=== PATIENT | female | born 1985 | race American Indian/Alaskan Native ===

== ENCOUNTER 2019-06-25 09:11 | Emergency (ER) | payer MEDICAID ==
--- NOTE | 2019-06-25 10:05 | Emergency Department Report ---
ED Female HPI - General Chief complaint: Urogenital-Female Stated complaint: UTI Time Seen by Provider: 06/25/19 09:30 Source: patient Mode of arrival: Ambulatory Limitations: No Limitations - History of Present Illness Initial comments: 34-year-old female with no significant past medical history presents to the hospital complaints of symptoms of a UTI 2 months. Patient is experiencing pelvic pain, urinary frequency, and stinging with urination. She was initially diagnosed with a UTI after ER visit however, symptoms continue despite completing antibiotics. She then followed up with her primary care doctor in [place] approximately 2 weeks ago and retested positive for UTI. She was treated with Pyridium and additional antibiotic which she also completed. She still complains of UTI symptoms. No complaints of fever, nausea, vomiting, or flank pain. Patient states she was also tested for gonorrhea and chlamydia which was negative but does have intermittent bacterial vaginosis. She states she has not been sexually active since symptom onset secondary to pelvic pain. - Related Data Previous Rx's Medication Instructions Recorded Last Taken Type Ibuprofen [Motrin] 600 mg PO Q8H PRN #30 tablet 06/25/19 Unknown Rx Allergies Allergy/AdvReac Type Severity Reaction Status Date / Time No Known Allergies Allergy Unverified 06/25/19 09:12 ED Review of Systems ROS: Stated complaint: UTI Other details as noted in HPI Comment: All other systems reviewed and negative ED Past Medical Hx - Past Medical History Previous Medical History?: No - Surgical History Past Surgical History?: Yes Additional Surgical History: left knee surgery - Social History Smoking Status: Never Smoker Substance Use Type: Alcohol - Medications Home Medications: Home Medications Medication Instructions Recorded Confirmed Last Taken Type Ibuprofen [Motrin] 600 mg PO Q8H PRN #30 tablet 06/25/19 Unknown Rx ED Physical Exam - General Limitations: No Limitations - Other Other exam information: Gen.: No acute distress Head: Atraumatic Eyes: Normal appearance ENT: Moist mucous membranes Neck: Normal appearance, no posterior midline tenderness, no meningismus Chest: Clear to auscultation bilaterally Cardiovascular: Regular rate and rhythm Abdomen: Normal appearance, soft, suprapubic tenderness, no rebound or guarding, normal bowel sounds : mild cmt, no adenxa tenderness, pelvic tenderness Back: Normal appearance, nontender, no CVA tenderness Extremity: Full range of motion, normal appearance Neuro: Alert and oriented 3, clear speech, no focal motor or sensory deficit Psychiatric: Appropriate Skin: No rash ED Course Vital Signs 06/25/19 09:18 Temperature 98.1 F Pulse Rate 79 Respiratory 18 Rate Blood Pressure 123/74 O2 Sat by Pulse 100 Oximetry ED Medical Decision Making - Radiology Data Radiology results: report reviewed ULTRASOUND PELVIS INDICATION: pelvic pain. TECHNIQUE: Transabdominal. Duplex Color Doppler used: Yes. COMPARISON: None available FINDINGS: Uterus: Present. Size: 7.0 x 4.8 x 5.8 cm. Endometrial complex: Thickened measuring 21 mm. Mass lesions: None. Additional findings: None. Right Ovary: Size: 3.4 x 2.0 x 1.7 cm Blood flow: Normal. Cyst or mass: None. Left Ovary: Size: 4.1 x 3.1 x 3.6 cm Blood flow: Normal. Cyst or mass: No solid lesions. There is a simple appearing cyst measuring 3.3 x 2.3 x 2.5 cm. Urinary Bladder: No significant abnormality. Free Fluid: None. Additional Findings: None. IMPRESSION: 1. No acute sonographic abnormality of the pelvis. 2. Left ovarian cyst as above is likely benign. No follow-up imaging is indicated at this time. - Medical Decision Making pt ua neg wet prep neg g/c chlamydia pending pt declined offer for treatment for gonorrhea and chlamydia stating that she tested negative recently and has not been sexually active Patient declined pain medication in the ED Ovarian cyst noted on ultrasound without other acute abnormality She will be discharged to follow-up with [facility]ET[facility] ANALYST - Differential Diagnosis PID, UTI and vaginitis Critical Care Time: No Critical care attestation.: If time is entered above; I have spent that time in minutes in the direct care of this critically ill patient, excluding procedure time. ED Disposition Clinical Impression: Pelvic pain, Ovarian cyst Disposition: TO HOME OR SELFCARE Is pt being admited?: No Condition: Stable Instructions: Abdominal Pain (ED), Ovarian Cyst (ED) Additional Instructions: Take the medication as prescribed. Follow-up with your doctor or with the doctor/clinic provided. Return if symptoms worsen as indicated by your discharge instructions. Prescriptions: Ibuprofen [Motrin] 600 mg PO Q8H PRN #30 tablet PRN Reason: Pain Referrals: MICHAEL WEINSTEIN MD [Primary Care Provider] - 3-5 Days JESSIE ANTHONY MD [Staff Physician] - 3-5 Days (Primary care doctor) DANIEL ROSEN MD [Staff Physician] - 3-5 Days (CONCRETE ANALYST doctor) [facility] [Provider Group] - 3-5 Days (Primary care clinic) Time of Disposition: 13:21
[2019-06-25 10:48] LABS: Bilirubin,Urine NEG (Negative); Blood,Urine NEG (Negative); Color,Urine Yellow (Yellow); Mucus,Urine FEW /HPF; Protein,Urine <15 mg/dL mg/dL (Negative); Urobilinogen,Urine < 2.0 mg/dL (<2.0)
[2019-06-25 10:56] LABS: HCG Qualitative,Urine Negative (Negative)
--- NOTE | 2019-06-25 13:04 | Ultrasound Report ---
ULTRASOUND PELVIS INDICATION: pelvic pain. TECHNIQUE: Transabdominal. Duplex Color Doppler used: Yes. COMPARISON: None available FINDINGS: Uterus: Present. Size: 7.0 x 4.8 x 5.8 cm. Endometrial complex: Thickened measuring 21 mm. Mass lesions: None. Additional findings: None. Right Ovary: Size: 3.4 x 2.0 x 1.7 cm Blood flow: Normal. Cyst or mass: None. Left Ovary: Size: 4.1 x 3.1 x 3.6 cm Blood flow: Normal. Cyst or mass: No solid lesions. There is a simple appearing cyst measuring 3.3 x 2.3 x 2.5 cm. Urinary Bladder: No significant abnormality. Free Fluid: None. Additional Findings: None. IMPRESSION: 1. No acute sonographic abnormality of the pelvis. 2. Left ovarian cyst as above is likely benign. No follow-up imaging is indicated at this time. Signer Name: Devin Jean Baptiste MD Signed: 06/25/2019 12:59 PM Workstation Name: [id number]
[2019-06-25 13:38] VITALS: BP 147/86
== END 2019-06-25 13:39 | disposition home or self-care (01) ==
LOC: ED 09:11
DX: N83.202 Unspecified ovarian cyst, left side (principal); Z79.899 Other long term (current) drug therapy
CPT/HCPCS: 76856; 81001; 81025; 87210; 87591; 99284

== ENCOUNTER 2019-07-18 09:52 | Emergency (ER) | payer MEDICAID ==
[2019-07-18 10:02] VITALS: BP 139/96
--- NOTE | 2019-07-18 10:26 | Emergency Department Report ---
HPI - General Chief Complaint: Abdominal Pain Time Seen by Provider: 07/18/19 10:09 - [facility] HPI: Room 37 The patient is a 34-year-old female presenting with a chief complaint of headache dizziness and vaginal discharge. The patient states she had a history of hypertension but has been off of medication for the past 2.5 years. The patient states for over a week she has had intermittent headache and dizziness. Patient also states she believes she has a bacterial vaginosis secondary to vaginal discharge and cramping pelvic pain for one week. Patient missed a dysuria and urinary frequency. Patient denies history of fever Location: [See above] Duration: [See above] Quality: [See above] Severity: [See above] Timing: [See above] Context: [See above] Modifying factors: [See above] Associated signs and symptoms: [see above] ED Past Medical Hx - Past Medical History Previous Medical History?: Yes Hx Hypertension: Yes Additional medical history: anemia - Surgical History Past Surgical History?: Yes Additional Surgical History: left knee surgery - Family History Family history: no significant - Social History Smoking Status: Never Smoker Substance Use Type: Alcohol (occasional) - Medications Home Medications: Home Medications Medication Instructions Recorded Confirmed Last Taken Type Ibuprofen [Motrin] 600 mg PO Q8H PRN #30 tablet 06/25/19 Unknown Rx metroNIDAZOLE [Flagyl] 500 mg PO Q12HR #14 tab 07/18/19 Unknown Rx ED Review of Systems ROS: Stated complaint: HPB/BV Other details as noted in HPI Constitutional: denies: fever Eyes: denies: eye pain ENT: denies: throat pain Respiratory: no symptoms reported Cardiovascular: denies: chest pain Endocrine: no symptoms reported Gastrointestinal: abdominal pain Genitourinary: dysuria, frequency, discharge Musculoskeletal: denies: back pain Neurological: headache, other (dizziness) Physical Exam - Physical Exam Vital Signs: Vital Signs 07/18/19 09:59 Temperature 98.6 F Pulse Rate 93 H Respiratory 18 Rate Blood Pressure 139/96 O2 Sat by Pulse 100 Oximetry Physical Exam: GENERAL: The patient is well-developed well-nourished female lying on stretcher not appearing to be in acute distress. [] HEENT: Normocephalic. Atraumatic. Extraocular motions are intact. Patient has moist mucous membranes. NECK: Supple. Trachea midline CHEST/LUNGS: Clear to auscultation. There is no respiratory distress noted. HEART/CARDIOVASCULAR: Regular. There is no tachycardia. There is no gallop rub or murmur. ABDOMEN: Abdomen is soft, nontender. Patient has normal bowel sounds. There is no abdominal distention. SKIN: There is no rash. There is no edema. There is no diaphoresis. NEURO: The patient is awake, alert, and oriented. The patient is cooperative. The patient has no focal neurologic deficits. The patient has normal speech and gait. Cranial nerves II through XII grossly intact, no drift MUSCULOSKELETAL: There is no evidence of acute injury. PELVIC: SMALL AMOUNT OF WHITE DISCHARGE PRESENT IN THE VAULT. ED Course Vital Signs 07/18/19 09:59 Temperature 98.6 F Pulse Rate 93 H Respiratory 18 Rate Blood Pressure 139/96 O2 Sat by Pulse 100 Oximetry - Reevaluation(s) Reevaluation #1: 07/18/19 11:[address] ED Medical Decision Making - Lab Data Laboratory Tests 07/18/19 10:22 Urine Color Yellow Urine Turbidity Clear Urine pH 5.0 Ur Specific [place] 1.020 Urine Protein <15 mg/dl Urine Glucose (UA) Neg Urine Ketones Neg Urine Blood Neg Urine Nitrite Neg Urine Bilirubin Neg Urine Urobilinogen < 2.0 Ur Leukocyte Esterase Neg Urine WBC (Auto) < 1.0 Urine RBC (Auto) < 1.0 U Epithel Cells (Auto) < 1.0 Urine Mucus Few Urine HCG, Qual Negative Jourdan-greater than 20% clue cells, no yeast, no Trichomonas - Differential Diagnosis intracranial mass, headache, urethritis, bacterial vaginosis Critical care attestation.: If time is entered above; I have spent that time in minutes in the direct care of this critically ill patient, excluding procedure time. ED Disposition Clinical Impression: Headache, Bacterial vaginosis Disposition: DC-01 TO HOME OR SELFCARE Is pt being admited?: No Does the pt Need Aspirin: No Condition: Undetermined Instructions: Abdominal Pain (ED), Bacterial Vaginosis (ED) Additional Instructions: Return to the emergency department should you develop worsening symptoms, inability to tolerate food or liquids, high fever or any other concerns Prescriptions: metroNIDAZOLE [Flagyl] 500 mg PO Q12HR #14 tab Referrals: DANIEL ROSEN MD [Staff Physician] - 3-5 Days Forms: STI Treatment and Prevention Time of Disposition: 12:34
[2019-07-18 10:56] LABS: Bilirubin,Urine NEG (Negative); Blood,Urine NEG (Negative); Color,Urine Yellow (Yellow); Mucus,Urine FEW /HPF; Protein,Urine <15 mg/dL mg/dL (Negative); RBC,Urine < 1.0 /HPF (0.0-6.0); Urobilinogen,Urine < 2.0 mg/dL (<2.0)
[2019-07-18 11:06] LABS: HCG Qualitative,Urine Negative (Negative); WBC,Urine < 1.0 /HPF (0.0-6.0)
== END 2019-07-18 13:29 | disposition home or self-care (01) ==
LOC: ED 09:52
DX: N76.0 Acute vaginitis (principal); R51 Headache; I10 Essential (primary) hypertension; D64.9 Anemia, unspecified; Z98.890 Other specified postprocedural states; Z79.899 Other long term (current) drug therapy
CPT/HCPCS: 81001; 81025; 87210; 87591

== ENCOUNTER 2019-11-10 23:43 | Emergency (ER) | payer MEDICAID ==
[2019-11-10 23:58] VITALS: BP 126/85
--- NOTE | 2019-11-11 01:07 | Emergency Department Report ---
ED Female HPI - General Chief complaint: Urogenital-Female Stated complaint: PELVIC PAIN Time Seen by Provider: 11/11/19 00:57 Source: patient Mode of arrival: Ambulatory Limitations: No Limitations - History of Present Illness Initial comments: 34-year-old -[place] female presents to the emergency room complaining of pelvic pain with vaginal discharge x1 week. Patient denies any nausea vomiting. Patient states that she did not follow-up with her primary care provider because she had to work the whole week. Patient is sexually active w ith one partner last intercourse 2 weeks ago. Patient states that the discharge has a slight odor. Patient reports she did take Advil for pain management. MD Complaint: vaginal discharge, pelvic pain - Related Data Previous Rx's Medication Instructions Recorded Last Taken Type Ibuprofen [Motrin] 600 mg PO Q8H PRN #30 tablet 06/25/19 Unknown Rx metroNIDAZOLE [Flagyl] 500 mg PO Q12HR #14 tab 07/18/19 Unknown Rx Allergies Allergy/AdvReac Type Severity Reaction Status Date / Time No Known Allergies Allergy Unverified 06/25/19 09:12 ED Review of Systems ROS: Stated complaint: PELVIC PAIN Other details as noted in HPI Comment: All other systems reviewed and negative ED Past Medical Hx - Past Medical History Previous Medical History?: Yes Hx Hypertension: Yes Additional medical history: anemia - Surgical History Past Surgical History?: Yes Additional Surgical History: left knee surgery - Social History Smoking Status: Never Smoker Substance Use Type: None - Medications Home Medications: Home Medications Medication Instructions Recorded Confirmed Last Taken Type Ibuprofen [Motrin] 600 mg PO Q8H PRN #30 tablet 06/25/19 Unknown Rx metroNIDAZOLE [Flagyl] 500 mg PO Q12HR #14 tab 07/18/19 Unknown Rx ED Physical Exam - General Limitations: No Limitations General appearance: alert, in no apparent distress - Head Head exam: Present: atraumatic, normocephalic - Eye Eye exam: Present: normal appearance - ENT ENT exam: Present: mucous membranes moist - GI/Abdominal GI/Abdominal exam: Present: soft, tenderness (Suprapubic). Absent: distended - External exam: Present: normal external exam Speculum exam: Present: normal speculum exam. Absent: erythema, vaginal discharge, cervical discharge Bi-manual exam: Present: adnexal tenderness - Extremities Exam Extremities exam: Present: normal inspection, full ROM - Back Exam Back exam: Present: normal inspection, full ROM - Neurological Exam Neurological exam: Present: alert, oriented X3, normal gait - Psychiatric Psychiatric exam: Present: normal affect, normal mood - Skin Skin exam: Present: warm, dry, intact, normal color. Absent: rash ED Course Vital Signs 11/10/19 23:49 Temperature 98.5 F Pulse Rate 101 H Respiratory 18 Rate Blood Pressure 126/85 O2 Sat by Pulse 98 Oximetry ED Medical Decision Making - Lab Data Laboratory Tests 11/11/19 00:18 Urine Color Yellow Urine Turbidity Clear Urine pH 5.0 Ur Specific [place] 1.031 H Urine Protein <15 mg/dl Urine Glucose (UA) Neg Urine Ketones Tr Urine Blood Neg Urine Nitrite Neg Urine Bilirubin Neg Urine Urobilinogen 2.0 Ur Leukocyte Esterase Neg Urine WBC (Auto) 1.0 Urine RBC (Auto) 2.0 U Epithel Cells (Auto) < 1.0 Urine Mucus 3+ Urine HCG, Qual Negative - Medical Decision Making 34-year-old -[place] female presents to the emergency room complaining of pelvic pain with vaginal discharge x1 week. Patient denies any nausea vomiting. Patient states that she did not follow-up with her primary care provider because she had to work the whole week. Patient is sexually active with one partner last intercourse 2 weeks ago. Patient states that the discharge has a slight odor. Patient reports she did take Advil for pain management. Critical care attestation.: If time is entered above; I have spent that time in minutes in the direct care of this critically ill patient, excluding procedure time. ED Disposition Clinical Impression: Pelvic pain Disposition: DC-01 TO HOME OR SELFCARE Is pt being admited?: No Does the pt Need Aspirin: No Condition: Stable Instructions: Chronic Pelvic Pain in Women (ED) Additional Instructions: Urinalysis is negative for any infection culture are negative for any infection. You can take ibuprofen or Tylenol for pelvic pain. Follow-up with your [facility] COORDINATOR. Referrals: PRIMARY CARE, [Primary Care Provider] - 3-5 Days
[2019-11-11 02:33] LABS: Bilirubin,Urine NEG (Negative); Blood,Urine NEG (Negative); Color,Urine Yellow (Yellow); Mucus,Urine 3+ /HPF; Protein,Urine <15 mg/dL mg/dL (Negative)
[2019-11-11 02:52] LABS: HCG Qualitative,Urine Negative (Negative)
== END 2019-11-11 02:58 | disposition home or self-care (01) ==
LOC: ED 23:43
DX: R10.2 Pelvic and perineal pain (principal); I10 Essential (primary) hypertension; Z98.890 Other specified postprocedural states; Z79.1 Long term (current) use of non-steroidal anti-inflammatories (NSAID); Z79.899 Other long term (current) drug therapy
CPT/HCPCS: 81001; 81025; 87210; 87591

== ENCOUNTER 2020-04-06 17:55 | Emergency (ER) | payer MEDICAID ==
--- NOTE | 2020-04-06 19:08 | Emergency Department Report ---
ED Headache HPI - General Chief Complaint: High BP Stated Complaint: HEADACHE/CP/HBP/DIZZY - History of Present Illness Allergies/Adverse Reactions: Allergies No Known Allergies Allergy (Unverified 06/25/19 09:12) Home Medications: Ambulatory Orders Ibuprofen [Motrin] 600 mg PO Q8H PRN #30 tablet 06/25/19 metroNIDAZOLE [Flagyl] 500 mg PO Q12HR #14 tab 07/18/19 ED Review of Systems ROS: Stated complaint: HEADACHE/CP/HBP/DIZZY Other details as noted in HPI ED Past Medical Hx - Past Medical History Previous Medical History?: Yes Hx Hypertension: Yes Additional medical history: anemia - Surgical History Past Surgical History?: Yes Additional Surgical History: left knee surgery - Social History Smoking Status: Never Smoker Substance Use Type: Alcohol - Medications Home Medications: Home Medications Medication Instructions Recorded Confirmed Last Taken Type Ibuprofen [Motrin] 600 mg PO Q8H PRN #30 tablet 06/25/19 Unknown Rx metroNIDAZOLE [Flagyl] 500 mg PO Q12HR #14 tab 07/18/19 Unknown Rx ED Physical Exam - General Limitations: No Limitations ED Course Vital Signs 04/06/20 18:08 Temperature 99.0 F Pulse Rate 104 H Respiratory 18 Rate Blood Pressure 122/76 O2 Sat by Pulse 100 Oximetry Critical care attestation.: If time is entered above; I have spent that time in minutes in the direct care of this critically ill patient, excluding procedure time. ED Disposition Condition: Stable
--- NOTE | 2020-04-06 19:12 | Event Note ---
ED Screening Note Date of service: 04/06/20 Time: 19:10 ED Screening Note: Patient 34-year-old -Cyp[place] female with a history of hypertension chronic anemia her on amlodipine. Presents for frontal headache 7/10 for the past 7 days with chest pain and shortness of breath at this time patient rates symptoms at 4/10.. Is constant and relieved by nothing however is exacerbated by activity. Patient denies prolonged sitting or trips. There is no cough that is productive. There has been no syncopal episode. This initial assessment/diagnostic orders/clinical plan/treatment(s) is/are subject to change based on patients health status, clinical progression and re- assessment by fellow clinical providers in the ED. Further treatment and workup at subsequent clinical providers discretion. Patient/guardian urged not to elope from the ED as their condition may be serious if not clinically assessed and managed. Initial orders include: cmp, cbc, cxr, ekg, ua, hcg,
[2020-04-06 19:40] LABS: Basophils % (Auto) 0.5 % (0.0-1.8); Eosinophils # (Auto) 0.1 K/mm3 (0.0-0.4); Eosinophils % (Auto) 1.5 % (0.0-4.3); Hematocrit 38.5 % (30.3-42.9); Hemoglobin 12.7 gm/dl (10.1-14.3); Lymphocytes # (Auto) 1.4 K/mm3 (1.2-5.4); Mean Corpuscular HGB Conc 33 % (30-34); Mean Corpuscular Volume 90 fl (79-97); Monocytes # (Auto) 0.8 K/mm3 (0.0-0.8); Monocytes % (Auto) 11.5 % (0.0-7.3); Platelet Count 181 K/mm3 (140-440); Red Blood Count 4.27 M/mm3 (3.65-5.03); Red Cell Distribution Width 13.9 % (13.2-15.2)
[2020-04-06 20:01] LABS: Alanine Aminotransferase 12 units/L (7-56); Albumin 4.2 g/dL (3.9-5); BUN/Creatinine Ratio 18; Blood Urea Nitrogen 11 mg/dL (7-17); Hemolysis Index 10
[2020-04-06 22:20] VITALS: BP 124/87
[2020-04-06] MEDS ORDERED: diphenhydrAMINE 25 MG CAP PO ONE (22:39)
[2020-04-06] MEDS ORDERED: BUTALB/ACETAMINOPHEN/CAFFEINE TAB PO ONE (22:39)
[2020-04-06] MEDS ORDERED: METOCLOPRAMIDE 10 MG TAB PO ONE (22:39)
--- NOTE | 2020-04-06 22:45 | Emergency Department Report ---
ED General Adult HPI - General Chief complaint: High BP Stated complaint: HEADACHE/CP/HBP/DIZZY Source: patient Mode of arrival: Ambulatory Limitations: No Limitations - History of Present Illness Initial comments: Patient is a 34-year-old -Tajik female with history of hypertension who presents to the ED with complaint of acute onset persistent severe frontal sinus pressure and headache for the last 1 week. Patient also complains of diffuse chest wall pain intermittently for the last 5 days. 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 Patient states the pain is intermittent in the chest wall but that the headache has been persistently getting worse despite taking qsvk-nww-thtzvat medications. Patient denies nausea, vomiting, dizziness, syncope, change in vision, nasal and sinus congestion, sore throat, shortness of breath, abdominal pain, nausea and vomiting or cough, traumatic injury or back pain and diarrhea. MD Complaint: Severe frontal headache with pressure; substernal chest pain -: Sudden, week(s) (1) Location: head, chest Radiation: non-radiation Severity scale (0 -10): 10 Quality: aching, sharp Consistency: constant Improves with: none Worsens with: none Associated Symptoms: denies other symptoms, chest pain. denies: confusion, cough, diaphoresis, fever/chills, headaches, loss of appetite, malaise, nausea/vomiting, seizure, shortness of breath, syncope, weakness Treatments Prior to Arrival: none - Related Data Previous Rx's Medication Instructions Recorded Last Taken Type metroNIDAZOLE [Flagyl] 500 mg PO Q12HR #14 tab 07/18/19 Unknown Rx Amoxicillin [Trimox CAP] 500 mg PO Q8H #30 capsule 04/06/20 Unknown Rx Butalb/Acetamin/Caff 50-325-40 1 - 2 tab PO Q6HR PRN #15 tab 04/06/20 Unknown Rx [Fioricet 50-325-40] Ibuprofen [Motrin 600 MG tab] 600 mg PO Q8H PRN #30 tablet 04/06/20 Unknown Rx tiZANidine [Zanaflex 4mg TAB] 4 mg PO Q12H PRN #15 tablet 04/06/20 Unknown Rx Allergies Allergy/AdvReac Type Severity Reaction Status Date / Time No Known Allergies Allergy Unverified 06/25/19 09:12 ED Review of Systems ROS: Stated complaint: HEADACHE/CP/HBP/DIZZY Other details as noted in HPI Constitutional: denies: chills, fever Eyes: denies: eye pain, eye discharge, vision change ENT: other (Frontal sinus pressure and headache). denies: ear pain, throat pain Respiratory: denies: cough, shortness of breath, wheezing Cardiovascular: chest pain (Diffuse chest wall pain). denies: palpitations Endocrine: no symptoms reported Gastrointestinal: denies: abdominal pain, nausea, diarrhea Genitourinary: denies: urgency, dysuria, discharge Musculoskeletal: denies: back pain, joint swelling, arthralgia Skin: denies: rash, lesions Neurological: headache. denies: weakness, paresthesias Psychiatric: denies: anxiety, depression Hematological/Lymphatic: denies: easy bleeding, easy bruising ED Past Medical Hx - Past Medical History Previous Medical History?: Yes Hx Hypertension: Yes Additional medical history: anemia - Surgical History Past Surgical History?: Yes Additional Surgical History: left knee surgery - Social History Smoking Status: Never Smoker Substance Use Type: Alcohol - Medications Home Medications: Home Medications Medication Instructions Recorded Confirmed Last Taken Type metroNIDAZOLE [Flagyl] 500 mg PO Q12HR #14 tab 07/18/19 Unknown Rx Amoxicillin [Trimox CAP] 500 mg PO Q8H #30 capsule 04/06/20 Unknown Rx Butalb/Acetamin/Caff 50-325-40 1 - 2 tab PO Q6HR PRN #15 tab 04/06/20 Unknown Rx [Fioricet 50-325-40] Ibuprofen [Motrin 600 MG tab] 600 mg PO Q8H PRN #30 tablet 04/06/20 Unknown Rx tiZANidine [Zanaflex 4mg TAB] 4 mg PO Q12H PRN #15 tablet 04/06/20 Unknown Rx ED Physical Exam - General Limitations: No Limitations General appearance: alert, in no apparent distress - Head Head exam: Present: atraumatic, normocephalic, normal inspection - Eye Eye exam: Present: normal appearance, PERRL, EOMI Pupils: Present: normal accommodation - ENT ENT exam: Present: normal orophraynx, mucous membranes moist, TM's normal bilaterally, normal external ear exam, other (Palpable severe frontal and maxillary sinus tenderness) - Neck Neck exam: Present: normal inspection, full ROM - Respiratory Respiratory exam: Present: normal lung sounds bilaterally, chest wall tenderness (Palpable reproducible diffuse chest wall tenderness). Absent: respiratory distress, wheezes, rales, rhonchi, accessory muscle use, decreased breath sounds - Cardiovascular Cardiovascular Exam: Present: regular rate, normal rhythm. Absent: systolic murmur, diastolic murmur, rubs, gallop - GI/Abdominal GI/Abdominal exam: Present: soft, normal bowel sounds. Absent: tenderness, guarding, rebound, hyperactive bowel sounds, hypoactive bowel sounds, organomegaly - Extremities Exam Extremities exam: Present: normal inspection, full ROM, normal capillary refill - Back Exam Back exam: Present: normal inspection, full ROM. Absent: tenderness, CVA tenderness (R), CVA tenderness (L), muscle spasm, paraspinal tenderness - Neurological Exam Neurological exam: Present: alert, oriented X3, CN II-XII intact, normal gait, reflexes normal - Psychiatric Psychiatric exam: Present: normal affect, normal mood - Skin Skin exam: Present: warm, dry, intact, normal color. Absent: rash ED Course Vital Signs 04/06/20 04/06/20 18:08 22:19 Temperature 99.0 F 98.8 F Pulse Rate 104 H 88 Respiratory 18 18 Rate Blood Pressure 122/76 Blood Pressure 124/87 [Left] O2 Sat by Pulse 100 99 Oximetry ED Medical Decision Making - Lab Data Result diagrams: 04/06/20 19:28 04/06/20 19:28 - EKG Data EKG shows normal: sinus rhythm Rate: normal - EKG Data Interpretation: normal EKG 04/07/20 00:31 The EKG shows normal sinus rhythm with ventricular rate of [address] and T wave abnormalities. - Radiology Data Radiology results: report reviewed, image reviewed Findings [address] [address] XRay Report Signed Patient: RAJANI SHIELDS MR#: [id number] : 1985 Acct:[id number] Age/Sex: 34 / F ADM Date: 04/06/20 Loc: ED Attending Dr: Ordering Physician: LISET LIVINGSTON NP Date of Service: 04/06/20 Procedure(s): XR chest routine 2V Accession Number(s): [id number] cc: LISET LIVINGSTON NP Fluoro Time In Minutes: CHEST 2 VIEWS INDICATION / CLINICAL INFORMATION: cp sob. COMPARISON: None available. FINDINGS: SUPPORT DEVICES: None. HEART / MEDIASTINUM: No significant abnormality. LUNGS / PLEURA: No significant pulmonary or pleural abnormality. No pneumothorax. ADDITIONAL FINDINGS: No significant additional findings. IMPRESSION: 1. No acute findings. Signer Name: Bill Medrano MD Signed: 04/06/2020 11:24 PM Workstation Name: [id number] Transcribed By: TL Dictated By: Bill Medrano MD Electronically Authenticated By: Bill Medrano MD Signed Date/Time: 04/06/202323 DD/ 23 TD/TT: - Medical Decision Making This is a 34-year-old -Tajik female with history of hypertension who presents to the ED with complaint of acute onset persistent severe frontal sinus pressure and headache for the last 1 week. Patient also complains of diffuse chest wall pain intermittently for the last 5 days. 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 Patient states the pain is intermittent in the chest wall but that the headache has been persistently getting worse despite taking toqf-pcj-itszipb medications. In the ED, patient is alert and oriented x3 and is not in distress. Lab test results were reviewed and are all nonactionable. Chest x-ray shows no acute cardiopulmonary abnormalities or pneumonitis. Patient was treated for pain in the ED and on reevaluation, patient's pain is well controlled medications. Patient was discharged home on medications and advised to follow-up with her primary care physician in 5 to 7 days for reevaluation or return to the ED immediately if symptoms get worse. - Differential Diagnosis Sinusitis; sinus headache; costochondritis; muscle strain; Pneumonia; CAD Critical care attestation.: If time is entered above; I have spent that time in minutes in the direct care of this critically ill patient, excluding procedure time. ED Disposition Clinical Impression: Severe frontal headaches, Acute costochondritis, Acute nonspecific chest pain with low risk of coronary artery disease, Acute non-recurrent frontal sinusitis Disposition: -01 TO HOME OR SELFCARE Is pt being admited?: No Does the pt Need Aspirin: No Condition: Stable Instructions: Chest Pain (ED), Costochondritis (ED), Acute Bacterial Rhinosinusitis (ED), Acute Headache (ED), Noncardiac Chest Pain (ED) Additional Instructions: All lab test results are unremarkable. Therefore take medication with food, drink plenty of fluids and follow-up with your primary care physician in 5 to 7 days for reevaluation. Return to the ED immediately if symptoms get worse. Prescriptions: Butalb/Acetamin/Caff 50-325-40 [Fioricet 50-325-40] 1 - 2 tab PO Q6HR PRN #15 tab PRN Reason: Headache Ibuprofen [Motrin 600 MG tab] 600 mg PO Q8H PRN #30 tablet PRN Reason: Pain Amoxicillin [Trimox CAP] 500 mg PO Q8H #30 capsule tiZANidine [Zanaflex 4mg TAB] 4 mg PO Q12H PRN #15 tablet PRN Reason: Muscle Spasm Referrals: [facility] [Provider Group] - 3-5 Days Forms: Work/School Release Form(ED) Time of Disposition: 22:44 Print Language: CENTRAL AFRICAN
[2020-04-06 22:54] LABS: Bilirubin,Urine NEG (Negative); Blood,Urine SM (Negative); Color,Urine Yellow (Yellow); Mucus,Urine FEW /HPF; Protein,Urine <15 mg/dL mg/dL (Negative); Urobilinogen,Urine < 2.0 mg/dL (<2.0)
[2020-04-06 22:56] LABS: HCG Qualitative,Urine Negative (Negative)
--- NOTE | 2020-04-06 23:29 | XRay Report ---
CHEST 2 VIEWS INDICATION / CLINICAL INFORMATION: cp sob. COMPARISON: None available. FINDINGS: SUPPORT DEVICES: None. HEART / MEDIASTINUM: No significant abnormality. LUNGS / PLEURA: No significant pulmonary or pleural abnormality. No pneumothorax. ADDITIONAL FINDINGS: No significant additional findings. IMPRESSION: 1. No acute findings. Signer Name: Bill Medrano MD Signed: 04/06/2020 11:24 PM Workstation Name: [id number]
== END 2020-04-07 00:20 | disposition home or self-care (01) ==
LOC: ED 17:55
DX: J01.10 Acute frontal sinusitis, unspecified (principal); M94.0 Chondrocostal junction syndrome [Tietze]; R51 Headache; R07.89 Other chest pain; I10 Essential (primary) hypertension; Z98.890 Other specified postprocedural states; Z79.1 Long term (current) use of non-steroidal anti-inflammatories (NSAID); Z79.2 Long term (current) use of antibiotics; Z79.899 Other long term (current) drug therapy
CPT/HCPCS: 36415; 71046; 80053; 81001; 81025; 84484; 85025; 93005

== ENCOUNTER 2020-08-04 11:33 | Emergency (ER) | payer MEDICAID ==
[2020-08-04 11:52] VITALS: BP 128/78
--- NOTE | 2020-08-04 13:16 | Emergency Department Report ---
Chief Complaint: Skin Rash Stated Complaint: SCABIES Time Seen by Provider: 08/04/20 12:39 - HPI History of Present Illness: 35-year-old -Welsh female presents to the emergency room stating she is having intermittent rashes. Patient feels that she has been exposed to scabies. She states that her daughter spent the night at her friend's house that admits that she had scabies in her home. Patient states that she is having itching. She denies any rashes at this time. Patient states she has been taking Benadryl. Patient denies any change of detergent soap powder or lotion. - Exam Vital Signs: Vital Signs 08/04/20 11:51 Temperature 98.1 F Pulse Rate 93 H Respiratory 16 Rate Blood Pressure 128/78 O2 Sat by Pulse 99 Oximetry MSE screening note: Focused history and physical exam performed. Due to findings the following was ordered: 35-year-old -Welsh female presents to the emergency room stating she is having intermittent rashes. Patient feels that she has been exposed to scabies. She states that her daughter spent the night at her friend's house that admits that she had scabies in her home. Patient states that she is having itching. She denies any rashes at this time. Patient states she has been taking Benadryl. Patient denies any change of detergent soap powder or lotion. Discussed with patient she can take Zyrtec's she can use ovnk-jpu-okvzuuu permethrin/Nix. 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 ED Disposition for MSE Disposition: MED SCREENING EXAM-LEFT Is pt being admited?: No Does the pt Need Aspirin: No Condition: Stable Additional Instructions: You can take wnxb-eaq-ocixvqi Zyrtec 10 mg daily you can use iaua-zyt-xefqxur Nix or Permethrin as a body wash. You can consult with the pharmacist. 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 Referrals: [facility] [Provider Group] - 3-5 Days [facility] [Provider Group] - 3-5 Days
== END 2020-08-04 12:43 | disposition left against medical advice (07) ==
LOC: ED 11:33
DX: R21 Rash and other nonspecific skin eruption (principal); Z53.21 Procedure and treatment not carried out due to patient leaving prior to being seen by health care provider

== ENCOUNTER 2020-10-10 09:13 | Day surgery (SDC) | payer MEDICAID ==
[2020-10-10] MEDS ORDERED: LACTATED RINGERS 1,000 ML ONE (09:27)
[2020-10-10] MEDS ORDERED: LACTATED RINGERS 1,000 ML IV SCH (09:30)
[2020-10-10 10:03] VITALS: BP 129/77
== END 2020-10-10 09:14 | disposition home or self-care (01) ==
LOC: OR 09:13
PROVIDERS: ATTEND Obstetrics & Gynecology
DX: N83.202 Unspecified ovarian cyst, left side (principal); R10.2 Pelvic and perineal pain; I10 Essential (primary) hypertension; D64.9 Anemia, unspecified; Z53.8 Procedure and treatment not carried out for other reasons; Z98.890 Other specified postprocedural states
CPT/HCPCS: 36415; 81025; 84702; 84703; J7120

== ENCOUNTER 2020-12-10 16:03 | Emergency (ER) | payer MEDICAID ==
--- NOTE | 2020-12-10 17:54 | Ultrasound Report ---
ULTRASOUND OBSTETRIC INDICATION / CLINICAL INFORMATION: , cramping, no heart tones at dr office. Clinical Gestational Age (GA): 14.1 weeks.days TECHNIQUE: Transabdominal. COMPARISON: None available. FINDINGS: GESTATIONAL SAC: Well-defined oval shape and intrauterine in location. YOLK SAC: No significant abnormality. EMBRYO/FETUS: - [place]-Rump Length = 4.0 cm = 10.6 weeks.days - Heart Rate, beats per minute (if present) = absent ADNEXA: Right ovary is not well-visualized today's examination. Left ovary demonstrates no significan t abnormality. FREE FLUID: None. ADDITIONAL FINDINGS: Small amount of subchorionic fluid suggesting a small subchorionic hemorrhage. T his measures approximately 2.5 x 1 cm. IMPRESSION: 1. Single intrauterine gestation without heart tones concerning for failure. Recommen d clinical correlation and further evaluation as warranted. Consider further follow-up with serial be ta hCG, as warranted. Signer Name: Matt Rose MD Signed: 12/10/2020 5:50 PM Workstation Name: [id number]
[2020-12-10 18:07] LABS: Basophils % (Auto) 0.5 % (0.0-1.8); Eosinophils # (Auto) 0.1 K/mm3 (0.0-0.4); Hematocrit 38.3 % (30.3-42.9); Hemoglobin 12.8 gm/dl (10.1-14.3); Lymphocytes # (Auto) 1.3 K/mm3 (1.2-5.4); Lymphocytes % (Auto) 19.2 % (13.4-35.0); Mean Corpuscular HGB Conc 33 % (30-34); Mean Corpuscular Volume 92 fl (79-97); Monocytes # (Auto) 0.7 K/mm3 (0.0-0.8); Monocytes % (Auto) 9.8 % (0.0-7.3); Platelet Count 156 K/mm3 (140-440); Red Blood Count 4.19 M/mm3 (3.65-5.03)
[2020-12-10 18:22] LABS: Alanine Aminotransferase 11 units/L (7-56); Blood Urea Nitrogen 7 mg/dL (7-17); Calcium 8.7 mg/dL (8.4-10.2); Hemolysis Index 13
[2020-12-10 18:24] LABS: BUN/Creatinine Ratio 18
--- NOTE | 2020-12-10 19:09 | Emergency Department Report ---
ED HPI - General Chief complaint: Vaginal Bleeding Stated complaint: 11 WKS /NO HEART BEAT Time Seen by Provider: 12/10/20 17:10 Source: patient Mode of arrival: Ambulatory Limitations: No Limitations - History of Present Illness Initial comments: Patient is a 35-year-old P2, G1, A0, pt presents for complaint of abdominal cramping x 1 week , seen at obgyn today Dr. Parikh, pt was refered to ed for US as office Us machine was not available today. pt is currently 11 weeks , LMP 3 months ago. pt denies vaginal bleeding, no vaginal discharge no fever no chills, no n/v. abdominal cramps rated at 4/10 intermittent. MD Complaint: abdominal pain - Related Data Home Medications Medication Instructions Recorded Confirmed Last Taken amLODIPine [Norvasc] 10 mg PO DAILY 09/26/20 10/08/20 Unknown Allergies Allergy/AdvReac Type Severity Reaction Status Date / Time No Known Allergies Allergy Verified 10/10/20 09:58 ED Review of Systems ROS: Stated complaint: 11 WKS /NO HEART BEAT Other details as noted in HPI Constitutional: denies: chills, fever Eyes: denies: eye pain, eye discharge, vision change ENT: denies: ear pain, throat pain Respiratory: denies: cough, shortness of breath, wheezing Cardiovascular: denies: chest pain, palpitations Endocrine: no symptoms reported Gastrointestinal: abdominal pain (Injection hCG pill). denies: nausea, vomiting, diarrhea Genitourinary: denies: urgency, dysuria, frequency, hematuria, discharge Musculoskeletal: denies: back pain, joint swelling, arthralgia Skin: denies: rash, lesions Neurological: denies: headache, weakness, paresthesias Psychiatric: denies: anxiety, depression Hematological/Lymphatic: denies: easy bleeding, easy bruising ED Past Medical Hx - Past Medical History Previous Medical History?: Yes Hx Hypertension: Yes Hx Headaches / Migraines: Yes (Migraines) Additional medical history: anemia - Surgical History Past Surgical History?: Yes Additional Surgical History: left knee surgery - Social History Smoking Status: Never Smoker - Medications Home Medications: Home Medications Medication Instructions Recorded Confirmed Last Taken Type amLODIPine [Norvasc] 10 mg PO DAILY 09/26/20 10/08/20 Unknown History ED Physical Exam - General Limitations: No Limitations General appearance: alert, in no apparent distress - Head Head exam: Present: atraumatic, normocephalic - Eye Eye exam: Present: EOMI Pupils: Present: normal accommodation - ENT ENT exam: Present: mucous membranes moist - Neck Neck exam: Present: normal inspection, full ROM. Absent: tenderness - Respiratory Respiratory exam: Present: normal lung sounds bilaterally. Absent: respiratory distress, wheezes, stridor, chest wall tenderness - Cardiovascular Cardiovascular Exam: Present: regular rate, normal rhythm, normal heart sounds. Absent: systolic murmur, diastolic murmur, rubs, gallop - GI/Abdominal GI/Abdominal exam: Present: soft, normal bowel sounds. Absent: distended, tenderness, guarding, rebound, rigid, bruit, hernia - Rectal Rectal exam: Present: deferred - Extremities Exam Extremities exam: Present: normal inspection, full ROM. Absent: tenderness, pedal edema - Back Exam Back exam: Present: normal inspection, full ROM. Absent: tenderness, CVA tenderness (R), CVA tenderness (L) - Neurological Exam Neurological exam: Present: alert, oriented X3, CN II-XII intact, normal gait - Psychiatric Psychiatric exam: Present: normal affect, normal mood - Skin Skin exam: Present: warm, dry, intact, normal color. Absent: rash ED Medical Decision Making - Lab Data Result diagrams: 12/10/20 17:37 12/10/20 17:37 Labs 12/10/20 12/10/20 12/10/20 17:37 17:37 17:37 WBC 6.9 RBC 4.19 Hgb 12.8 Hct 38.3 MCV 92 MCH 31 MCHC 33 RDW 14.0 Plt Count 156 Lymph % (Auto) 19.2 [place] % (Auto) 9.8 H Eos % (Auto) 2.0 Baso % (Auto) 0.5 Lymph # (Auto) 1.3 [place] # (Auto) 0.7 Eos # (Auto) 0.1 Baso # (Auto) 0.0 Seg Neutrophils % 68.5 Seg Neutrophils # 4.7 Sodium 136 L Potassium 4.0 Chloride 102.2 Carbon Dioxide 25 Anion Gap 13 BUN 7 Creatinine 0.4 L Estimated GFR > 60 BUN/Creatinine Ratio 18 Glucose 78 Calcium 8.7 Total Bilirubin 0.20 AST 20 ALT 11 Alkaline Phosphatase 50 Total Protein 7.6 Albumin 4.0 Albumin/Globulin Ratio 1.1 HCG, Quant 2178 H Blood Type 12/10/20 17:37 WBC RBC Hgb Hct MCV MCH MCHC RDW Plt Count Lymph % (Auto) [place] % (Auto) Eos % (Auto) Baso % (Auto) Lymph # (Auto) [place] # (Auto) Eos # (Auto) Baso # (Auto) Seg Neutrophils % Seg Neutrophils # Sodium Potassium Chloride Carbon Dioxide Anion Gap BUN Creatinine Estimated GFR BUN/Creatinine Ratio Glucose Calcium Total Bilirubin AST ALT Alkaline Phosphatase Total Protein Albumin Albumin/Globulin Ratio HCG, Quant Blood Type A POSITIVE - Radiology Data Radiology results: report reviewed, image reviewed ULTRASOUND OBSTETRIC INDICATION / CLINICAL INFORMATION: , cramping, no heart tones at dr office. Clinical Gestational Age (GA): 14.1 weeks.days TECHNIQUE: Transabdominal. COMPARISON: None available. FINDINGS: GESTATIONAL SAC: Well-defined oval shape and intrauterine in location. YOLK SAC: No significant abnormality. EMBRYO/FETUS: - [place]-Rump Length = 4.0 cm = 10.6 weeks.days - Heart Rate, beats per minute (if pr esent) = absent ADNEXA: Right ovary is not well-visualized today's examination. Left ovary demonstrates no significant abnormality. FREE FLUID: None. ADDITIONAL FINDINGS: Small amount of subchorionic fluid suggesting a small subchorionic hemorrhage. This measures approximately 2.5 x 1 cm. IMPRESSION: 1. Single intrauterine gestation without heart tones concerning for failure. Recommend clinical correlation and further evaluation as warranted. Consider further follow-up with serial beta hCG, as warranted. Signer Name: Matt Rose MD Signed: 12/10/2020 5:50 PM Workstation Name: [id number] Transcribed By: Dictated By: MATT ROSE III Electronically Authenticated By: MATT ROSE III Signed Date/Time: 12/10/20 175 DD/ 43 TD/TT: - Medical Decision Making US OB: Single intrauterine gestation without heart tones concerning for failure. Recommend clinical correlation and further evaluation as warranted. Consider further follow-up with serial beta hCG, as warranted. discussed finding with patient , patient will folllw up with OBGYN in am , Dr. Parikh, pt denies vaginal bleeding at this time, denies pain at this time, plan: dc to self in stable condition, follow with Dr. Parikh in am, return to ed if symptoms worsen. pt verbalized agreement and understanding of discharge plan. Critical care attestation.: If time is entered above; I have spent that time in minutes in the direct care of this critically ill patient, excluding procedure time. ED Disposition Clinical Impression: Threatened miscarriage Disposition: DC-01 TO HOME OR SELFCARE Is pt being admited?: No Does the pt Need Aspirin: No Condition: Stable Instructions: Threatened Miscarriage Additional Instructions: follow up with your OBGYN in am, return to ed if symptoms worsen. Referrals: KARLOS PARIKH MD [Staff Physician] - 3-5 Days Forms: Work/School Release Form(ED) Time of Disposition: 19:24
== END 2020-12-10 19:30 | disposition home or self-care (01) ==
LOC: ED 16:03
DX: O20.0 Threatened abortion (principal); I10 Essential (primary) hypertension; G43.909 Migraine, unspecified, not intractable, without status migrainosus; Z3A.11 11 weeks gestation of pregnancy; Z98.890 Other specified postprocedural states; Z79.899 Other long term (current) drug therapy
CPT/HCPCS: 36415; 76801; 80053; 84702; 85025; 86900; 86901

== ENCOUNTER 2020-12-13 17:20 | Emergency (ER) | payer MEDICAID ==
[2020-12-13] MEDS ORDERED: SODIUM CHLORIDE 0.9% 1000 ML 1,000 ML IV ONE ×2 (17:35→19:04)
[2020-12-13 17:57] LABS: Basophils % (Auto) 0.3 % (0.0-1.8); Eosinophils # (Auto) 0.1 K/mm3 (0.0-0.4); Eosinophils % (Auto) 1.6 % (0.0-4.3); Hematocrit 35.4 % (30.3-42.9); Hemoglobin 11.9 gm/dl (10.1-14.3); Lymphocytes # (Auto) 1.3 K/mm3 (1.2-5.4); Lymphocytes % (Auto) 17.2 % (13.4-35.0); Mean Corpuscular HGB Conc 34 % (30-34); Mean Corpuscular Volume 92 fl (79-97); Monocytes % (Auto) 13.2 % (0.0-7.3); Platelet Count 170 K/mm3 (140-440); Red Blood Count 3.84 M/mm3 (3.65-5.03); Red Cell Distribution Width 14.1 % (13.2-15.2)
[2020-12-13 18:09] LABS: INR 1.03 (0.87-1.13)
[2020-12-13 18:17] LABS: Blood Urea Nitrogen 10 mg/dL (7-17); Calcium 7.8 mg/dL (8.4-10.2); Hemolysis Index 9
[2020-12-13 18:19] LABS: BUN/Creatinine Ratio 20
[2020-12-13] MEDS ORDERED: KETOROLAC 30 MG/1 ML INJ IV ONE (18:44)
--- NOTE | 2020-12-13 19:38 | Emergency Department Report ---
<TIN ROSAS - Last Filed: 12/13/20 19:35> ED HPI - General Chief complaint: Vaginal Bleeding Stated complaint: VAGINAL BLEEDING Time Seen by Provider: 12/13/20 17:29 Source: EMS Mode of arrival: Stretcher Limitations: No Limitations - History of Present Illness Initial comments: Patient is a 35-year-old F [place] female who is currently and approximately according to the patient is last menstrual period almost 4 months who is presenting with some heavy vaginal bleeding. Patient was here 3 days ago for some low abdominal pain. Ultrasound was performed which showed probable demise. Quant at that time was a little over 1999. Patient states today she is started to bleed extremely heavily. Some cramping lower abdominal pain. Patient states she is passing large clots. States she feels some mild weakness dizziness. Also feels very cold. - Related Data Home Medications Medication Instructions Recorded Confirmed Last Taken amLODIPine [Norvasc] 10 mg PO DAILY 09/26/20 10/08/20 Unknown Allergies Allergy/AdvReac Type Severity Reaction Status Date / Time No Known Allergies Allergy Verified 10/10/20 09:58 ED Review of Systems Comment: All other systems reviewed and negative ED Past Medical Hx - Past Medical History Hx Hypertension: Yes Hx Headaches / Migraines: Yes (Migraines) Additional medical history: anemia - Surgical History Past Surgical History?: Yes Additional Surgical History: left knee surgery - Social History Smoking Status: Unknown if ever smoked Substance Use Type: None - Medications Home Medications: Home Medications Medication Instructions Recorded Confirmed Last Taken Type amLODIPine [Norvasc] 10 mg PO DAILY 09/26/20 10/08/20 Unknown History ED Physical Exam - General Limitations: No Limitations General appearance: alert, in no apparent distress - Head Head exam: Present: atraumatic, normocephalic - Eye Eye exam: Present: normal appearance - ENT ENT exam: Present: mucous membranes moist - Neck Neck exam: Present: normal inspection - Respiratory Respiratory exam: Present: normal lung sounds bilaterally. Absent: respiratory distress, wheezes, rales - Cardiovascular Cardiovascular Exam: Present: normal rhythm, tachycardia. Absent: systolic murmur, diastolic murmur, rubs, gallop - GI/Abdominal GI/Abdominal exam: Present: soft, tenderness (lower abd), normal bowel sounds. Absent: distended, guarding, rebound - External exam: Present: bleeding, other (Patient with large amount of blood on her clothes on arrival. Pants had to be discarded. Patient with large clots that were in her underwear and in the vaginal vault.) - Extremities Exam Extremities exam: Present: normal inspection - Back Exam Back exam: Present: normal inspection - Neurological Exam Neurological exam: Present: alert, oriented X3 - Psychiatric Psychiatric exam: Present: normal affect, normal mood - Skin Skin exam: Present: warm, dry, intact, normal color. Absent: rash ED Course - Reevaluation(s) Reevaluation #1: 12/13/20 19:37 Patient's blood pressure dropped slightly to 99 systolic. Additional liter of fluid was ordered. Did check the patient after her ultrasound and she continued to have large clots in the vaginal vault and on the belkis beneath her. Appears to be a continuous steady trickle of blood. ED Medical Decision Making - Lab Data Result diagrams: 12/13/20 17:43 12/13/20 17:43 Lab Results 12/13/20 12/13/20 12/13/20 Range/Units 17:43 17:43 17:43 WBC 7.8 (4.5-11.0) K/mm3 RBC 3.84 (3.65-5.03) M/mm3 Hgb 11.9 (10.1-14.3) gm/dl Hct 35.4 (30.3-42.9) % MCV 92 (79-97) fl MCH 31 (28-32) pg MCHC 34 (30-34) % RDW 14.1 (13.2-15.2) % Plt Count 170 (140-440) K/mm3 Lymph % (Auto) 17.2 (13.4-35.0) % [place] % (Auto) 13.2 H (0.0-7.3) % Eos % (Auto) 1.6 (0.0-4.3) % Baso % (Auto) 0.3 (0.0-1.8) % Lymph # (Auto) 1.3 (1.2-5.4) K/mm3 [place] # (Auto) 1.0 H (0.0-0.8) K/mm3 Eos # (Auto) 0.1 (0.0-0.4) K/mm3 Baso # (Auto) 0.0 (0.0-0.1) K/mm3 Seg Neutrophils % 67.7 (40.0-70.0) % Seg Neutrophils # 5.3 (1.8-7.7) K/mm3 PT 13.3 (12.2-14.9) Sec. INR 1.03 (0.87-1.13) APTT 32.0 (24.2-36.6) Sec. Sodium 136 L (137-145) mmol/L Potassium 3.8 (3.6-5.0) mmol/L Chloride 105.0 (98-107) mmol/L Carbon Dioxide 22 (22-30) mmol/L Anion Gap 13 mmol/L BUN 10 (7-17) mg/dL Creatinine 0.5 L (0.6-1.2) mg/dL Estimated GFR > 60 ml/min BUN/Creatinine Ratio 20 % Glucose 100 (65-100) mg/dL Calcium 7.8 L (8.4-10.2) mg/dL HCG, Quant (0-4) mIU/mL Blood Type 12/13/20 12/13/20 Range/Units 17:43 17:43 WBC (4.5-11.0) K/mm3 RBC (3.65-5.03) M/mm3 Hgb (10.1-14.3) gm/dl Hct (30.3-42.9) % MCV (79-97) fl MCH (28-32) pg MCHC (30-34) % RDW (13.2-15.2) % Plt Count (140-440) K/mm3 Lymph % (Auto) (13.4-35.0) % [place] % (Auto) (0.0-7.3) % Eos % (Auto) (0.0-4.3) % Baso % (Auto) (0.0-1.8) % Lymph # (Auto) (1.2-5.4) K/mm3 [place] # (Auto) (0.0-0.8) K/mm3 Eos # (Auto) (0.0-0.4) K/mm3 Baso # (Auto) (0.0-0.1) K/mm3 Seg Neutrophils % (40.0-70.0) % Seg Neutrophils # (1.8-7.7) K/mm3 PT (12.2-14.9) Sec. INR (0.87-1.13) APTT (24.2-36.6) Sec. Sodium (137-145) mmol/L Potassium (3.6-5.0) mmol/L Chloride (98-107) mmol/L Carbon Dioxide (22-30) mmol/L Anion Gap mmol/L BUN (7-17) mg/dL Creatinine (0.6-1.2) mg/dL Estimated GFR ml/min BUN/Creatinine Ratio % Glucose (65-100) mg/dL Calcium (8.4-10.2) mg/dL HCG, Quant 865.4 H (0-4) mIU/mL Blood Type A POSITIVE ED Disposition Clinical Impression: Threatened miscarriage, SAB (spontaneous ), Vaginal bleeding Disposition: TO HOME OR SELFCARE Condition: Stable Additional Instructions: Patient to follow-up with primary care in 2 to 3 days. Patient to follow-up with FUEL STORAGE TECHNICIAN in 2 to 3 days. Nothing per vagina until cleared by FUEL STORAGE TECHNICIAN. Patient to rest. Patient to increase water. Patient to avoid strenuous exercise or heavy lifting until cleared by FUEL STORAGE TECHNICIAN. Patient to take Tylenol or ibuprofen as needed for pain. Patient to continue a vitamin. Patient to return to the ER if condition worsens, changes or new symptoms arise. Referrals: DIMPLE VARGAS NP [Primary Care Provider] - 2-3 Days PROSPER NEVILLE MD [Staff Physician] - 2-3 Days <DENZEL BOO III - Last Filed: 12/13/20 22:04> ED Review of Systems ROS: Stated complaint: VAGINAL BLEEDING Other details as noted in HPI ED Course Vital Signs 12/13/20 12/13/20 12/13/20 17:30 17:42 17:50 Temperature 98.1 F Pulse Rate 122 H 119 H Respiratory 18 16 20 Rate Blood Pressure 108/73 Blood Pressure [Right] O2 Sat by Pulse 98 97 98 Oximetry 12/13/20 12/13/20 12/13/20 17:51 18:01 18:31 Temperature 98.1 F Pulse Rate 122 H Respiratory 18 14 13 Rate Blood Pressure 108/73 104/72 Blood Pressure 108/73 [Right] O2 Sat by Pulse 98 99 93 Oximetry 12/13/20 19:28 Temperature Pulse Rate 109 H Respiratory 15 Rate Blood Pressure Blood Pressure 116/69 [Right] O2 Sat by Pulse 100 Oximetry - Reevaluation(s) Reevaluation #2: Patient was signed out to me from the physician, Dr. Rosas to follow-up on the ultrasound and await for FUEL STORAGE TECHNICIAN consult. 12/13/20 20:01 Reevaluation #3: I reexamined the patient. A pelvic exam was done with nurse Milagro in the room. Patient noted to have a large clot sitting in the bed as well as she is already bled through the panty liner that was placed 20 minutes ago. Patient was just changed by the nurse. Patient states she does not want to stay. Patient states she is feeling better. Patient states she needs to go home. Patient states she is ready to go. 12/13/20 22:01 Reevaluation #4: I discussed all results and clinical findings with patient. I discussed plan of care with patient. Patient agrees with plan of care. Patient is stable for discharge. Patient will be discharged home. Patient given discharge instructions. Patient voiced understanding of discharge instructions. 12/13/20 22:10 - Consultations Consultation #1: Dr. Neville saw the patient and stated that there is no active bleeding and the patient can be discharged home. 12/13/20 21:10 I discussed the case and updated Dr. Neville. Dr. Neville states the patient is still stable to go home. 12/13/20 22:02 ED Medical Decision Making - Lab Data Result diagrams: 12/13/20 17:43 12/13/20 17:43 - Radiology Data Radiology results: report reviewed Ultrasound report reviewed. Impression of the ultrasound shows since prior ultrasound of 12/10/2020 there has been spontaneous . Previously noted IUP is no longer present. Endometrium is moderately thickened and heterogeneous consistent with recent spontaneous . Critical care attestation.: If time is entered above; I have spent that time in minutes in the direct care of this critically ill patient, excluding procedure time. ED Disposition Is pt being admited?: No Does the pt Need Aspirin: No Time of Disposition: 22:04
--- NOTE | 2020-12-13 21:25 | Consultation ---
History of Present Illness Consult date: 12/13/20 History of present illness: Pt came in on 12/10 and U/s showed a first trim IUP with no FHT and quant of over 2100, giving Dx of SAB. PT presented to ED again today with more VB and cramping. Quant today is 865 and U/S shows and empty uterus with no IUP or gest sac (which differs vs 3 days ago). Since admission, pt notes her VB and cramping has lessened significantly. RH pos Past History Past Medical History: other (migraines) Past Surgical History: other (knee surgery) Medications and Allergies Allergies Allergy/AdvReac Type Severity Reaction Status Date / Time No Known Allergies Allergy Verified 10/10/20 09:58 Home Medications Medication Instructions Recorded Confirmed Last Taken Type amLODIPine [Norvasc] 10 mg PO DAILY 09/26/20 10/08/20 Unknown History Review of Systems All systems: negative (except HPI) - Vital Signs Vital signs: Vital Signs Temp Pulse Resp BP Pulse Ox 98.1 F 122 H 18 108/73 98 12/13/20 17:30 12/13/20 17:30 12/13/20 17:30 12/13/20 17:30 12/13/20 17:30 Temp Pulse Resp BP Pulse Ox 98.1 F 109 H 15 116/69 100 12/13/20 17:51 12/13/20 19:28 12/13/20 19:28 12/13/20 19:28 12/13/20 19:28 - Physical Exam Genitourinary (Female): Positive: normal external genitalia Vulva: both: normal Vagina: Positive: other (Pelvic exam in ED. about 200-300 cc of clots expressed out the vagina. All dark. No further active VB noted. Also, on her pad the fetus was also noted.) Cervix: Positive: other (Finger tip dilated, no further active VB noted.) Uterus: Positive: normal size Results Result Diagrams: 12/13/20 17:43 12/13/20 17:43 Abnormal lab results 12/13/20 12/13/20 12/13/20 Range/Units 17:43 17:43 17:43 [place] % (Auto) 13.2 H (0.0-7.3) % [place] # (Auto) 1.0 H (0.0-0.8) K/mm3 Sodium 136 L (137-145) mmol/L Creatinine 0.5 L (0.6-1.2) mg/dL Calcium 7.8 L (8.4-10.2) mg/dL HCG, Quant 865.4 H (0-4) mIU/mL All other labs normal. Assessment and Plan - Patient Problems (1) SAB (spontaneous ) Current Visit: Yes Status: Acute Plan to address problem: U/S findings, no more active VB and visualization of the fetus on her pad suggests that her SAB is completed or nearly completed. PT reassured. Options d/w pt and D&C not desired. Would observe pt a little longer in the ED. She may pass a few more clots but no significant further VB expected. IF she remains stable, she may go home. RTO as needed. Case d/w ED MD and he agrees with the plan.
[2020-12-13 21:54] VITALS: BP 102/50
--- NOTE | 2020-12-16 07:50 | Ultrasound Report ---
ULTRASOUND OBSTETRIC INDICATION / CLINICAL INFORMATION: heavy vaginal bleding. Clinical Gestational Age (GA) in weeks, days: Clinical dates of 14 weeks 4 days TECHNIQUE: Transabdominal. COMPARISON: Ultrasound performed 12/10/2020 FINDINGS: Uterus: The uterus is enlarged measuring 10.8 x 6.5 x 7.7 cm. The endometrium is thickened measuring 17 mm. The endometrium is heterogeneous in appearance. There is no gestational sac or fetus identifie d within the uterus. ADNEXA: No significant abnormality. Please note that the right ovary was not visualized. FREE FLUID: None. ADDITIONAL FINDINGS: None. IMPRESSION: 1. Since prior ultrasound of 12/10/2020, there has been spontaneous . Previously noted IUP is no longer present. 2. Sunny and is moderately thickened and heterogeneous consistent with recent spontaneous . Signer Name: Katarina Nguyen MD Signed: 12/13/2020 8:16 PM Workstation Name: [id number]
== END 2020-12-13 22:29 | disposition home or self-care (01) ==
LOC: ED 17:20
DX: O20.0 Threatened abortion (principal); I10 Essential (primary) hypertension; G43.909 Migraine, unspecified, not intractable, without status migrainosus; Z3A.14 14 weeks gestation of pregnancy; Z98.890 Other specified postprocedural states; Z79.899 Other long term (current) drug therapy
CPT/HCPCS: 36415; 76801; 80048; 84702; 85025; 85610; 85730; 86900; 86901; 96361; 96374; 99284; J1885; J7030

== ENCOUNTER 2020-12-17 11:27 | Emergency (ER) | payer MEDICAID ==
--- NOTE | 2020-12-17 12:05 | Event Note ---
ED Screening Note Date of service: 12/17/20 Time: 12:05 ED Screening Note: Patient seen here by Dr. Parikh, APPRAISER for blood transfusion Patient unsure of what her hemoglobin levels were Seen here 12/13/2020 for spontaneous This initial assessment/diagnostic orders/clinical plan/treatment(s) is/are subject to change based on patients health status, clinical progression and re- assessment by fellow clinical providers in the ED. Further treatment and workup at subsequent clinical providers discretion. Patient/guardian urged not to elope from the ED as their condition may be serious if not clinically assessed and managed. Initial orders include: Labs Main ED
[2020-12-17 12:40] LABS: Basophils % (Auto) 0.4 % (0.0-1.8); Eosinophils % (Auto) 0.4 % (0.0-4.3); Hematocrit 24.1 % (30.3-42.9); Hemoglobin 8.1 gm/dl (10.1-14.3); Lymphocytes # (Auto) 0.4 K/mm3 (1.2-5.4); Lymphocytes % (Auto) 4.9 % (13.4-35.0); Mean Corpuscular HGB Conc 34 % (30-34); Mean Corpuscular Volume 90 fl (79-97); Monocytes # (Auto) 0.6 K/mm3 (0.0-0.8); Monocytes % (Auto) 6.8 % (0.0-7.3); Platelet Count 104 K/mm3 (140-440); Red Blood Count 2.67 M/mm3 (3.65-5.03); Red Cell Distribution Width 14.5 % (13.2-15.2)
[2020-12-17 12:48] LABS: INR 1.03 (0.87-1.13)
[2020-12-17 12:49] LABS: Partial Thromboplastin Time 26.4 Sec. (24.2-36.6)
[2020-12-17 12:58] LABS: Alanine Aminotransferase 11 units/L (7-56); Albumin 3.3 g/dL (3.9-5); Blood Urea Nitrogen 7 mg/dL (7-17); Calcium 8.2 mg/dL (8.4-10.2); Hemolysis Index 3
[2020-12-17 13:15] LABS: BUN/Creatinine Ratio 14
[2020-12-17] MEDS ORDERED: IBUPROFEN 800 MG TAB PO ONE (14:04)
--- NOTE | 2020-12-17 14:07 | Emergency Department Report ---
ED Recheck HPI - General Chief Complaint: Recheck/Abnormal Lab/Rx Stated Complaint: BLOOD TRANSFUSION Time Seen by Provider: 12/17/20 13:56 Source: patient Mode of arrival: Ambulatory Limitations: No Limitations - History of Present Illness Initial Comments: 35-year-old female presents to ED for possible blood transfusion. Patient reports onset of heavy vaginal bleeding 4 days ago. Patient states she subsequently had a miscarriage. Patient had an ultrasound here on 12/13/2020 that showed no IUP. Patient reports the next day she was seen at either [facility] and received 1 unit PRBCs because hemoglobin had dropped and she was still having some vaginal bleeding. Patient was seen by her STORY EDITOR Dr. De Anda today in office, who advised the patient come to the ED for evaluation to check current hemoglobin and evaluate for retained POC's. Patient reports she is still having some spotting and occasional heavy bleeding. MD Complaint: abnormal lab (Hemoglobin) -: days(s) (4) - Related Data Home Medications Medication Instructions Recorded Confirmed Last Taken amLODIPine [Norvasc] 10 mg PO DAILY 09/26/20 10/08/20 Unknown Previous Rx's Medication Instructions Recorded Last Taken Type Methylergonovine [Methergine] 0.2 mg PO Q8HR 3 Days #9 tablet 12/17/20 Unknown Rx traMADoL [Ultram] 50 mg PO Q6HR PRN #7 tablet 12/17/20 Unknown Rx Allergies Allergy/AdvReac Type Severity Reaction Status Date / Time No Known Allergies Allergy Verified 10/10/20 09:58 ED Review of Systems ROS: Stated complaint: BLOOD TRANSFUSION Other details as noted in HPI ED Past Medical Hx - Past Medical History Hx Hypertension: Yes Hx Headaches / Migraines: Yes (Migraines) Additional medical history: anemia - Surgical History Additional Surgical History: left knee surgery - Social History Smoking Status: Never Smoker Substance Use Type: None - Medications Home Medications: Home Medications Medication Instructions Recorded Confirmed Last Taken Type amLODIPine [Norvasc] 10 mg PO DAILY 09/26/20 10/08/20 Unknown History Methylergonovine [Methergine] 0.2 mg PO Q8HR 3 Days #9 tablet 12/17/20 Unknown Rx traMADoL [Ultram] 50 mg PO Q6HR PRN #7 tablet 12/17/20 Unknown Rx ED Physical Exam - General Limitations: No Limitations ED Course Vital Signs 12/17/20 12:04 Temperature 99.3 F Pulse Rate 67 Respiratory 18 Rate Blood Pressure 132/67 [Left] O2 Sat by Pulse 99 Oximetry - Consultations Consultation #1: 12/17/20 15:[address] De Anda. Informed hypertension PACs on ultrasound. Wants patient to be discharged with prescription for p.o. Methergine 0.2 3 times daily x3 days. Critical care attestation.: If time is entered above; I have spent that time in minutes in the direct care of this critically ill patient, excluding procedure time. ED Disposition Clinical Impression: Incomplete miscarriage Disposition: DC-01 TO HOME OR SELFCARE Is pt being admited?: No Condition: Stable Instructions: Incomplete Miscarriage Prescriptions: Methylergonovine [Methergine] 0.2 mg PO Q8HR 3 Days #9 tablet Referrals: KARLOS DE ANDA MD [Primary Care Provider] - 2-3 Days Time of Disposition: 15:35
--- NOTE | 2020-12-17 15:13 | Ultrasound Report ---
US OB <= 14 weeks fetus INDICATION / CLINICAL INFORMATION: vag bleeding; eval for retained products. TECHNIQUE: Transabdominal. Duplex Color Doppler used: Yes. COMPARISON: 12/13/2020 FINDINGS: UTERUS: The uterus measures 10.1 x 6 0.0, 6.5 cm. No IUP is visualized. The endometrial stripe remain s thickened, measuring 2.4 cm. There is increased vascularity, preferentially along the anterior aspe ct of the thickened endometrium. RIGHT ADNEXA: No significant ovarian cyst or mass. Normal color Doppler blood flow. LEFT ADNEXA: No significant ovarian cyst or mass. Normal color Doppler blood flow. FREE FLUID: None. ADDITIONAL FINDINGS: None. IMPRESSION: Thickened endometrial stripe with increased vascularity, preferentially along the anterior aspect of the endometrium. Findings are concerning for retained products of conception. Signer Name: Dioni Mendez MD Signed: 12/17/2020 3:09 PM Workstation Name: [id number]
[2020-12-17] MEDS ORDERED: POTASSIUM CHLORIDE ER 20 MEQ TAB PO ONE (15:32)
[2020-12-17 16:34] VITALS: BP 123/73
== END 2020-12-17 16:05 | disposition home or self-care (01) ==
LOC: ED 11:27
DX: O03.4 Incomplete spontaneous abortion without complication (principal); I10 Essential (primary) hypertension; G43.909 Migraine, unspecified, not intractable, without status migrainosus; F17.200 Nicotine dependence, unspecified, uncomplicated; Z79.899 Other long term (current) drug therapy
CPT/HCPCS: 36415; 76801; 80053; 84702; 85025; 85610; 85730; 86850; 86900; 86901

== ENCOUNTER 2020-12-18 08:50 | Emergency (ER) | payer MEDICAID ==
--- NOTE | 2020-12-18 09:15 | Emergency Department Report ---
ED General Adult HPI - General Chief complaint: Vaginal Bleeding Stated complaint: HAD MISCARRIAGE 12/13/20 Time Seen by Provider: 12/18/20 09:13 Source: patient Mode of arrival: Wheelchair Limitations: No Limitations - History of Present Illness Initial comments: This is a 35-year-old female who has been here multiple times during this . Her first OB consult is indicative of the following: Pt came in on 12/10 and U/s showed a first trim IUP with no FHT and quant of over 2100, giving Dx of SAB. PT presented to ED again today with more VB and cramping. Quant today is 865 and U/S shows and empty uterus with no IUP or gest sac (which differs vs 3 days ago). Since admission, pt notes her VB and cramping has lessened significantly. RH pos She was seen yesterday. She has had a gradually decreasing quantitative test. However yesterday her ultrasound was consistent with our POC. The emergency physician communicated with her call center team leader who recommended Methergine. The patient has not filled that prescription yet. She states that she passed some clots during the night and used "a whole box of pads". Therefore she came to the emergency department for reevaluation. She did not call her call center team leader. 12/17: 35-year-old female presents to ED for possible blood transfusion. Patient reports onset of heavy vaginal bleeding 4 days ago. Patient states she subsequently had a miscarriage. Patient had an ultrasound here on 12/13/2020 that showed no IUP. Patient reports the next day she was seen at either [facility] and received 1 unit PRBCs because hemoglobin had dropped and she was still having some vaginal bleeding. Patient was seen by her [employer] Dr. Jl davis in office, who advised the patient come to the ED for evaluation to check current hemoglobin and evaluate for retained POC's. Patient reports she is still having some spotting and occasional heavy bleeding. MD Complaint: abnormal lab (Hemoglobin) -: days(s) (4) FINDINGS: UTERUS: The uterus measures 10.1 x 6 0.0, 6.5 cm. No IUP is visualized. The endometrial stripe remains thickened, measuring 2.4 cm. There is increased vascularity, preferentially along the anterior aspect of the thickened endometrium. RIGHT ADNEXA: No significant ovarian cyst or mass. Normal color Doppler blood flow. LEFT ADNEXA: No significant ovarian cyst or mass. Normal color Doppler blood fl ow. FREE FLUID: None. ADDITIONAL FINDINGS: None. IMPRESSION: Thickened endometrial stripe with increased vascularity, preferentially along the anterior aspect of the endometrium. Findings are concerning for retained products of conception. Signer Name: Dioni Mendez MD -: Gradual, week(s) Location: abdomen Quality: other (Intermittent crampy pain) Consistency: intermittent Associated Symptoms: other (Vaginal bleeding as above described) Treatments Prior to Arrival: other (See above) - Related Data Home Medications Medication Instructions Recorded Confirmed Last Taken amLODIPine [Norvasc] 10 mg PO DAILY 09/26/20 10/08/20 Unknown Previous Rx's Medication Instructions Recorded Last Taken Type Methylergonovine [Methergine] 0.2 mg PO Q8HR 3 Days #9 tablet 12/17/20 Unknown Rx traMADoL [Ultram] 50 mg PO Q6HR PRN #7 tablet 12/17/20 Unknown Rx Ferrous Gluconate [Ferrous 324 mg PO TID #20 tablet 12/18/20 Unknown Rx Gluconate 324 MG] Allergies Allergy/AdvReac Type Severity Reaction Status Date / Time No Known Allergies Allergy Verified 12/18/20 08:53 ED Review of Systems ROS: Stated complaint: HAD MISCARRIAGE 12/13/20 Other details as noted in HPI Constitutional: denies: chills, fever Eyes: denies: eye pain, eye discharge, vision change ENT: denies: ear pain, throat pain Respiratory: denies: cough, shortness of breath, wheezing Cardiovascular: denies: chest pain, palpitations Endocrine: no symptoms reported Gastrointestinal: abdominal pain. denies: nausea, diarrhea Genitourinary: other (Vaginal bleeding). denies: urgency, dysuria, discharge Musculoskeletal: denies: back pain, joint swelling, arthralgia Skin: denies: rash, lesions Neurological: denies: headache, weakness, paresthesias Psychiatric: denies: anxiety, depression Hematological/Lymphatic: denies: easy bleeding, easy bruising ED Past Medical Hx - Past Medical History Hx Hypertension: Yes Hx Headaches / Migraines: Yes (Migraines) Additional medical history: anemia - Surgical History Additional Surgical History: left knee surgery - Social History Smoking Status: Never Smoker Substance Use Type: None - Medications Home Medications: Home Medications Medication Instructions Recorded Confirmed Last Taken Type amLODIPine [Norvasc] 10 mg PO DAILY 09/26/20 10/08/20 Unknown History Methylergonovine [Methergine] 0.2 mg PO Q8HR 3 Days #9 tablet 12/17/20 Unknown Rx traMADoL [Ultram] 50 mg PO Q6HR PRN #7 tablet 12/17/20 Unknown Rx Ferrous Gluconate [Ferrous 324 mg PO TID #20 tablet 12/18/20 Unknown Rx Gluconate 324 MG] ED Physical Exam - General Limitations: No Limitations General appearance: alert, in no apparent distress - Head Head exam: Present: atraumatic, normocephalic - Eye Eye exam: Present: normal appearance - ENT ENT exam: Present: mucous membranes moist - Neck Neck exam: Present: normal inspection - Respiratory Respiratory exam: Present: normal lung sounds bilaterally. Absent: respiratory distress - Cardiovascular Cardiovascular Exam: Present: regular rate, normal rhythm. Absent: systolic murmur, diastolic murmur, rubs, gallop - GI/Abdominal GI/Abdominal exam: Present: soft, normal bowel sounds. Absent: distended, tenderness, guarding, rebound, rigid - Extremities Exam Extremities exam: Present: normal inspection - Back Exam Back exam: Present: normal inspection - Neurological Exam Neurological exam: Present: alert, oriented X3, CN II-XII intact. Absent: motor sensory deficit - Psychiatric Psychiatric exam: Present: normal affect, normal mood - Skin Skin exam: Present: warm, dry, intact, normal color. Absent: rash ED Course Vital Signs 12/18/20 12/18/20 12/18/20 08:53 09:08 09:15 Temperature 99.6 F Pulse Rate 116 H 94 H Respiratory 18 18 29 H Rate Blood Pressure 115/65 114/72 Blood Pressure [Right] O2 Sat by Pulse 96 100 Oximetry 12/18/20 12/18/20 12/18/20 09:31 09:45 10:01 Temperature Pulse Rate 105 H 96 H 93 H Respiratory 22 28 H 26 H Rate Blood Pressure 110/65 114/72 116/67 Blood Pressure [Right] O2 Sat by Pulse 99 100 100 Oximetry 12/18/20 12/18/20 12/18/20 10:15 10:31 10:45 Temperature Pulse Rate 96 H 96 H 98 H Respiratory 24 24 21 Rate Blood Pressure 116/73 119/73 115/78 Blood Pressure [Right] O2 Sat by Pulse 100 99 100 Oximetry 12/18/20 12/18/20 12/18/20 11:01 11:15 11:31 Temperature Pulse Rate 99 H 117 H 101 H Respiratory 28 H 26 H 26 H Rate Blood Pressure 118/78 104/62 99/63 Blood Pressure [Right] O2 Sat by Pulse 100 100 100 Oximetry 12/18/20 12/18/20 12:00 12:01 Temperature Pulse Rate 102 H 99 H Respiratory 16 16 Rate Blood Pressure 119/70 Blood Pressure 114/74 [Right] O2 Sat by Pulse 99 100 Oximetry - Reevaluation(s) Reevaluation #1: Discussed with Dr. De Anda. She recommends 3 days of Methergine and see her in the office the day after which would be Wednesday. She was given 0.2 of Methergine IM here. The patient was observed and found to have no significant bleeding. 12/18/20 12:19 ED Medical Decision Making - Lab Data Result diagrams: 12/18/20 09:47 Critical care attestation.: If time is entered above; I have spent that time in minutes in the direct care of this critically ill patient, excluding procedure time. ED Disposition Clinical Impression: Incomplete miscarriage Disposition: DC-01 TO HOME OR SELFCARE Is pt being admited?: No Does the pt Need Aspirin: No Condition: Stable Additional Instructions: Get Methergine prescription as previously prescribed. Also iron replacement medication prescription written or [id number]. See Dr. De Anda on Wednesday. Return to the emergency department any significant bleeding acute change or problem. Prescriptions: Ferrous Gluconate [Ferrous Gluconate 324 MG] 324 mg PO TID #20 tablet Referrals: MICHAEL WEINSTEIN MD [Primary Care Provider] - 3-5 Days KARLOS DE ANDA MD [Staff Physician] - 3-5 Days Time of Disposition: 12:20
[2020-12-18] MEDS ORDERED: SODIUM CHLORIDE 0.9% 1000 ML 1,000 ML IV ONE ×2 (09:24→11:23)
[2020-12-18 10:01] LABS: Basophils % (Auto) 0.1 % (0.0-1.8); Eosinophils % (Auto) 0.1 % (0.0-4.3); Hematocrit 23.5 % (30.3-42.9); Hemoglobin 8.1 gm/dl (10.1-14.3); Lymphocytes # (Auto) 0.6 K/mm3 (1.2-5.4); Mean Corpuscular HGB Conc 34 % (30-34); Mean Corpuscular Volume 90 fl (79-97); Monocytes % (Auto) 13.3 % (0.0-7.3); Platelet Count 125 K/mm3 (140-440); Red Blood Count 2.62 M/mm3 (3.65-5.03); Red Cell Distribution Width 14.3 % (13.2-15.2)
[2020-12-18] MEDS ORDERED: METHYLERGONOVINE MALEATE 0.2 MG/ML VIAL IM ONE (10:47)
[2020-12-18 12:20] VITALS: BP 116/65
== END 2020-12-18 13:00 | disposition home or self-care (01) ==
LOC: ED 08:50
DX: O03.4 Incomplete spontaneous abortion without complication (principal); I10 Essential (primary) hypertension; G43.909 Migraine, unspecified, not intractable, without status migrainosus; Z79.899 Other long term (current) drug therapy; Z3A.00 Weeks of gestation of pregnancy not specified
CPT/HCPCS: 36415; 84702; 85025; 86850; 86900; 86901; 96360; 96361; 96372; 99283; J2210; J7030

== ENCOUNTER 2021-07-01 08:38 | Emergency (ER) | payer MEDICAID ==
[2021-07-01 08:49] VITALS: BP 119/83
[2021-07-01] MEDS ORDERED: ACETAMINOPHEN 500 MG TAB PO ONE (08:51)
--- NOTE | 2021-07-01 08:52 | Emergency Department Report ---
<CHERIE TEJADA - Last Filed: 07/01/21 08:51> ED Female HPI - General Chief complaint: Vaginal Bleeding Stated complaint: MISCARRIAGE ON Jun/DIZZY Time Seen by Provider: 07/01/21 08:50 Source: patient Mode of arrival: Ambulatory Limitations: No Limitations - Related Data Previous Rx's Medication Instructions Recorded Last Taken Type Ferrous Gluconate [Ferrous 324 mg PO TID #20 tablet 12/18/20 Unknown Rx Gluconate 324 MG] Allergies Allergy/AdvReac Type Severity Reaction Status Date / Time No Known Allergies Allergy Verified 07/01/21 08:49 ED Past Medical Hx - Past Medical History Hx Hypertension: Yes Hx Headaches / Migraines: Yes (Migraines) Additional medical history: anemia - Surgical History Additional Surgical History: left knee surgery - Social History Smoking Status: Never Smoker Substance Use Type: None - Medications Home Medications: Home Medications Medication Instructions Recorded Confirmed Last Taken Type Ferrous Gluconate [Ferrous 324 mg PO TID #20 tablet 12/18/20 Unknown Rx Gluconate 324 MG] ED Physical Exam - General Limitations: No Limitations ED Disposition Clinical Impression: SAB (spontaneous ) Disposition: HOME / SELF CARE / HOMELESS Condition: Stable Instructions: Miscarriage, [id number] Additional Instructions: stay well hydrated follow up with obgyn in 48 hours for recheck Referrals: KARLOS DE ANDA MD [Staff Physician] - 3-5 Days <CARA HERRON - Last Filed: 07/01/21 12:46> ED Female HPI - History of Present Illness Initial comments: 36 YO AA FEMALE COMES TO ER WITH VAG BLEEDING SP MISCARRIAGE ON 06-28. SHE SAW DINESH EVANS ON 06-28 AND WAS GIVEN MISOPROSTOL 200 MG EVERY 6 HOURS FOR IMMINENT AB. SHE HAD ULTRASOUND ON THAT SAME DAY WHICH PER PT REVEALED NO HR. Pt had a pelvic exam/urine check at that visit. PT HAD MISCARRIAGE IN 12/15; AFTER THAT ONE SHE REQUIRED BLOOD TRANSFUSION- SHE HAS A/C ANEMIA HOME MEDS FE SHE HAS CONSTANT MILD SUPRAPUBIC CRAMPING NO DYSURIA NO DISCHARGE Pt is concerned because earlier this year she required blood transfusion after miscarriage. She had a dizzy spell this AM while standing up and that prompted her coming to ER. On arrival she denies cp, sob or dizziness. She is ambulatory and nad on exam MD Complaint: vaginal bleeding -: Gradual, days(s) Radiation: non-radiating Severity: mild Quality: cramping Consistency: constant Improves with: none Worsens with: none Are you Now?: No Associated Symptoms: vaginal bleeding, abdominal pain, other (DIZZY). denies: vaginal discharge, nausea/vomiting, fever/chills, headaches, loss of appetite, dysuria, hematuria, shortness of breath, syncope, weakness - Related Data Sexually active: Yes : 3 Para: 1 A: 2 ED Review of Systems ROS: Stated complaint: MISCARRIAGE ON Jun/DIZZY Other details as noted in HPI Comment: All other systems reviewed and negative ED Past Medical Hx - Past Medical History Previous Medical History?: Yes - Surgical History Past Surgical History?: Yes - Family History Family history: no significant - Social History Smoking Status: Never Smoker Substance Use Type: None ED Physical Exam - General General appearance: alert, in no apparent distress - Head Head exam: Present: atraumatic, normocephalic - Eye Eye exam: Present: normal appearance - ENT ENT exam: Present: mucous membranes moist - Neck Neck exam: Present: normal inspection - Respiratory Respiratory exam: Present: normal lung sounds bilaterally. Absent: respiratory distress - Cardiovascular Cardiovascular Exam: Present: regular rate, normal rhythm. Absent: systolic murmur, diastolic murmur, rubs, gallop - GI/Abdominal GI/Abdominal exam: Present: soft, normal bowel sounds - Extremities Exam Extremities exam: Present: normal inspection - Back Exam Back exam: Present: normal inspection - Neurological Exam Neurological exam: Present: alert, oriented X3 - Psychiatric Psychiatric exam: Present: normal affect, normal mood - Skin Skin exam: Present: warm, dry, intact, normal color. Absent: rash ED Course Vital Signs 07/01/21 07/01/21 08:44 08:45 Temperature 98.3 F 98.4 F Pulse Rate 93 H 95 H Respiratory 16 19 Rate Blood Pressure 119/80 Blood Pressure 119/83 [Right] O2 Sat by Pulse 99 97 Oximetry - Reevaluation(s) Reevaluation #1: reports dec in vag bleeding denies cp, sob or dizziness pt asking RN if she can eat lunch ED Medical Decision Making - Lab Data Result diagrams: 07/01/21 09:03 - Radiology Data Radiology results: report reviewed, image reviewed no retained product - Medical Decision Making Vital Signs 07/01/21 07/01/21 08:44 08:45 Temperature 98.3 F 98.4 F Pulse Rate 93 H 95 H Respiratory 16 19 Rate Blood Pressure 119/80 Blood Pressure 119/83 [Right] O2 Sat by Pulse 99 97 Oximetry Labs 07/01/21 07/01/21 07/01/21 09:03 09:03 09:03 WBC 4.0 L RBC 3.64 L Hgb 11.3 Hct 33.7 MCV 93 MCH 31 MCHC 34 RDW 13.6 Plt Count 147 Lymph % (Auto) 20.4 [place] % (Auto) 8.3 H Eos % (Auto) 2.6 Baso % (Auto) 0.7 Lymph # (Auto) 0.8 L [place] # (Auto) 0.3 Eos # (Auto) 0.1 Baso # (Auto) 0.0 Seg Neutrophils % 68.0 Seg Neutrophils # 2.7 HCG, Quant 2104 H Blood Type A POSITIVE Antibody Screen Negative us noted no ectopic/ no retained product hbg 11 hcg 2104 Rh pos 1L NS/norco for pain while in ER On dc exam pt reports feeling better. She has no cp, no sob, no dizziness. She has taken PO. She is ambulatory in ER. Pt updated on test findings. Pt is to have follow up hgb in 48 hours at obgyn. Pt d/c home with dc plan of care including diet, activity, follow up, pelvic rest, hydration and use of OTC meds for pain. She verbalizes understanding of plan of care. - Differential Diagnosis SP AB; RO RETAINED PRODUCTS; RO SYMPTOMATIC ANEMIA Critical care attestation.: If time is entered above; I have spent that time in minutes in the direct care of this critically ill patient, excluding procedure time. ED Disposition Is pt being admited?: No Does the pt Need Aspirin: No Time of Disposition: 09:30
[2021-07-01] MEDS ORDERED: SODIUM CHLORIDE 0.9% 1000 ML 1,000 ML IV ONE (09:09)
[2021-07-01] MEDS ORDERED: HYDROcodone/ACETAMINOPHEN 5-325 MG TAB PO ONE (09:09)
[2021-07-01 09:16] LABS: Basophils % (Auto) 0.7 % (0.0-1.8); Eosinophils # (Auto) 0.1 K/mm3 (0.0-0.4); Eosinophils % (Auto) 2.6 % (0.0-4.3); Hematocrit 33.7 % (30.3-42.9); Hemoglobin 11.3 gm/dl (10.1-14.3); Lymphocytes # (Auto) 0.8 K/mm3 (1.2-5.4); Lymphocytes % (Auto) 20.4 % (13.4-35.0); Mean Corpuscular HGB Conc 34 % (30-34); Mean Corpuscular Volume 93 fl (79-97); Monocytes # (Auto) 0.3 K/mm3 (0.0-0.8); Monocytes % (Auto) 8.3 % (0.0-7.3); Platelet Count 147 K/mm3 (140-440); Red Blood Count 3.64 M/mm3 (3.65-5.03); Red Cell Distribution Width 13.6 % (13.2-15.2)
--- NOTE | 2021-07-01 11:30 | Ultrasound Report ---
FIRSTTRIMESTER OBSTETRIC ULTRASOUND ULTRASOUND OB TRANSVAGINAL HISTORY: Pelvic pain after miscarriage COMPARISON: 12/17/2020 TECHNIQUE: Routine transabdominal and transvaginal OB ultrasound performed. FINDINGS: Uterus: Mildly enlarged measuring 10.4 x 4.4 x 8.6 cm. Gestational Sac: Not identified Yolk Sac: Not identified Fetus/Embryo: Not identified Endometrium: The endometrium is homogeneous and measures 7 mm on transvaginal imaging. No obvious ret ained products of conception or fluid. Ovaries: The right ovary is normal in size and appearance with normal blood flow, measuring 4.1 x 1. 6 x 3.0 cm. The left ovary is normal in size and appearance with normal blood flow, measuring 2.6 x 1.5 x 3.0 cm. No adnexal cyst or mass. Color Doppler imaging demonstrates perfusion to both adnexal r egions. Additional findings: None. IMPRESSION No intrauterine is detected. The endometrium measures 7 mm. No evidence for retained products of conception. Normal ovaries. Signer Name: Mario Garcia Jr, MD Signed: 07/01/2021 11:26 AM Workstation Name: [id number]
== END 2021-07-01 12:41 | disposition home or self-care (01) ==
LOC: ED 08:38
DX: O03.9 Complete or unspecified spontaneous abortion without complication (principal)
CPT/HCPCS: 36415; 76801; 76817; 84702; 85025; 86850; 86900; 86901; 96360; 99284; J7030

== ENCOUNTER 2022-06-14 07:00 | Emergency (ER) | payer MEDICAID ==
[2022-06-14 09:22] LABS: Color,Urine Yellow (Yellow)
[2022-06-14 09:31] LABS: Mucus,Urine 2+ /HPF
[2022-06-14 09:40] LABS: HCG Qualitative,Urine Negative (Negative)
[2022-06-14 11:24] VITALS: BP 110/80
== END 2022-06-14 11:20 | disposition home or self-care (01) ==
LOC: ED 07:00
DX: N39.0 Urinary tract infection, site not specified (principal); Z53.21 Procedure and treatment not carried out due to patient leaving prior to being seen by health care provider
CPT/HCPCS: 81001; 81025